=== PATIENT | female | born 1995 | race African-American/Black ===

== ENCOUNTER 2019-08-25 09:11 | Emergency (ER) | payer BC ==
[2019-08-25 10:30] VITALS: BP 118/69
[2019-08-25 17:44] LABS: HIV 4th Generation Nonreactive (Nonreactive)
[2019-08-25 18:34] LABS: Hepatitis B Surface Antigen Nonreactive (Nonreactive)
[2019-08-25 18:51] LABS: Hepatitis B Surface Ab Not Immune (Immune); Hepatitis C Antibody Negative (Negative)
--- NOTE | 2019-08-29 16:39 | UC ---
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 Patient states that the needle "poked the area between her R thumb and R index finger." Patient states she could not see exactly where it poked her because it did not stick into her and stay and it did not leave a asa. Also states it did not make her bleed. Patient states she was not going to come to the clinic but her family urged her to be seen. Patient brought the needle, which she states is an insulin needle. 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 States unsure of last tetanus. - History of Current Complaint Chief Complaint: UCBodyFluidExposure Stated Complaint: NEEDLE STICK AT WORK Date of Incident: 08/23/19 Time of Incident: 13:00 Blood on Needle: No Depth of Needlestick: Puncture - Source Information HIV: Unknown Hepatitis: Unknown - Other Discussed Post-Exposure Prophylaxis (PEP) for HIV: Declined Discussed PEP for Hepatitis-B: Declined PMH/Surg Hx/FS Hx/Imm Hx Previously Healthy: Yes - Surgical History Surgical History: Yes Surgery Procedure, Year, and Place: tonsils, appendix, gallbladder, lymph node removal, endometriosis - Family History Known Family History: Positive: Non-Contributory - Social History Alcohol Use: None Substance Use Type: None Smoking Status (MU): Never Smoked Tobacco - Immunization History Most Recent Tetanus Shot: [id number] Review of Systems All Other Systems Reviewed And Are Negative: Yes Constitutional: Positive: Negative Skin: Positive: Negative Respiratory: Positive: Negative Cardiovascular: Positive: Negative Gastrointestinal: Positive: Negative Musculoskeletal: Positive: Negative Neurological: Positive: Negative Physical Exam Triage Information Reviewed: Yes Appearance: Well-Appearing, No Pain Distress, Well-Nourished Vital Signs: Initial Vital Signs Temp 98.3 F 08/25/19 10:25 Pulse 67 08/25/19 10:25 Resp 18 08/25/19 10:25 BP 118/69 08/25/19 10:25 Pulse Ox 99 08/25/19 10:25 Vital Signs Reviewed: Yes Eyes: Positive: Conjunctiva Clear ENT: Positive: Hearing grossly normal Neck: Positive: Supple Respiratory Exam: Normal Respiratory: Positive: Lungs clear, Normal breath sounds, No respiratory distress Cardiovascular Exam: Normal Cardiovascular: Positive: RRR Neurological: Positive: Alert Psychological: Positive: Age Appropriate Behavior Skin Exam: Normal - no erythema, ecchymosis, puncture wound, abrasions Needlestick Course/Dx - Course Course Of Treatment: The patient verbally consented to baseline labs for HIV, hep b, and hep c. She declined PEP after all questions answered. I spoke with clinician hotline to assess risk of betty disease from her needlestick. The MD gave reassurance that risk was "virtually zero." I relayed this message to the patient which further solidified her decision not to begin PEP. I instructed the patient to follow up with Dr. Del Cid for further lab work and evaluation going forward. Patient did not receive tetanus shot here at the clinic due to latex allergy. I referred the patient to the health department for patient to receive latex free booster within the next 5 days. Patient voiced understanding and agreed with plan. - Diagnoses Provider Diagnoses: Needle stick injury of finger of right hand Discharge ED - Sign-Out/Discharge Documenting (check all that apply): Patient Departure All imaging exams completed and their final reports reviewed: No Studies - Discharge Plan Condition: Stable Disposition: HOME Patient Education Materials: Needle Stick Injuries (ED) Referrals: Maria Eugenia BURKS,Nnamdi Pearce [Medical Doctor] [facility] Additional Instructions: As discussed, your needle stick injury is low risk. You have received baseline testing for HIV, Hep C, and Hep B today. You will need to follow up with the infectious disease doctor listed below for further management and testing going forward. It is recommended that you go to the Health Department to receive the latex free tetanus booster. Follow up with your primary care provider to ask about Hep B vaccinations and make sure you are up to date going forward. Health Department [address] [place] [address] - Billing Disposition and Condition Condition: STABLE Disposition: Home - Attestation Statements Provider Attestation: This patient was not seen by me. I was available for consult. Chart reviewed. ROBERTO CARLOS
== END 2019-08-25 11:49 | disposition home or self-care (01) ==
LOC: UCEAST 09:11
DX: S69.91XA Unspecified injury of right wrist, hand and finger(s), initial encounter (principal); W46.0XXA Contact with hypodermic needle, initial encounter; Y92.9 Unspecified place or not applicable; Y99.0 Civilian activity done for income or pay
CPT/HCPCS: 36415; 86706; 86803; 87340; 87389; 99211; G0463